=== PATIENT | male | born 1945 | race Caucasian/White ===

== ENCOUNTER → 2024-03-25 08:58 | Outpatient (REF) | payer MEDICARE, OTHER, SELFPAY | LOC: RCS 08:58 | PROVIDERS: ATTENDING PHYSICIAN Internal Medicine Cardiovascular Disease; FAMILY PHYSICIAN Family Medicine | DX: R06.09 Other forms of dyspnea (principal) | CPT/HCPCS: 93225; 93226 ==

== ENCOUNTER → 2024-03-29 12:22 | Outpatient (REF) | payer MEDICARE, OTHER, SELFPAY | LOC: HWRAD 12:22 | PROVIDERS: ATTENDING PHYSICIAN Nurse Practitioner Adult Health; FAMILY PHYSICIAN Family Medicine | DX: R91.1 Solitary pulmonary nodule (principal) | CPT/HCPCS: 71250 ==

== ENCOUNTER → 2024-04-07 11:02 | Outpatient (REF) | payer MEDICARE, OTHER, SELFPAY | LOC: HWRCS 11:02 | PROVIDERS: ATTENDING PHYSICIAN Internal Medicine Cardiovascular Disease; FAMILY PHYSICIAN Family Medicine | DX: R06.09 Other forms of dyspnea (principal); I45.10 Unspecified right bundle-branch block; I44.4 Left anterior fascicular block | CPT/HCPCS: 93306 ==

== ENCOUNTER → 2024-05-27 12:24 | Outpatient (REF) | payer MEDICARE, OTHER, SELFPAY | LOC: RAD 12:24 | PROVIDERS: ATTENDING PHYSICIAN Family Medicine | DX: M54.50 Low back pain, unspecified (principal) | CPT/HCPCS: 72110 ==

== ENCOUNTER 2024-06-17 14:34 | Emergency (ER) | payer MEDICARE, OTHER, SELFPAY ==
[2024-06-17 14:36] VITALS: BP 200/90
--- NOTE | 2024-06-17 14:36 | ED.GENMED ---
ED Provider Triage
<Gabby Olmos PA-C - Last Filed: 06/17/24 18:57>
-
Patient seen by provider in Triage?: Seen in Triage
Attestation: A medical screening examination has been initiated by a qualified medical provider. Based on the assessment performed at this time, it has been determined that an emergent medical condition may exist and the patient has been informed
that further medical evaluation and possible additional diagnostic testing may be needed.
HPI: 78yoM here with low back pain x several weeks after an injury. He was pulling a weed and fell backwards. Had x-rays last month which showed degenerative changes. PCP told him it was a bruise. Has an MRI scheduled for next month but can't wait
that long due to pain. No fevers, incontinence, saddle anesthesia.
GENERAL: Alert , in no apparent distress
EYE: No visual abnormalities.
NECK: Trachea midline
ENT: No visible abnormalities.
LUNGS: No acute respiratory distress
NEUROLOGICAL: Alert and oriented
SKIN: Skin intact. No visible changes.
MUSCULOSKELETAL: Moving extremities normally
PSYCH: Normal and appropriate interaction.
This is a medical evaluation conducted in person to initiate diagnostic evaluation and provide initial therapeutics. Please see further documentation by the treating clinician.
History of Present Illness
<Gabby Olmos PA-C - Last Filed: 06/17/24 18:57>
General
Chief Complaint: Back Pain
Time Seen by Provider: 06/17/24 16:14
<Allison Celis NP - Last Filed: 06/19/24 12:15>
General
Source: patient
Exam Limitations: none
Nursing documentation reviewed up to this point in time: agreed with
History of Present Illness
History of Present Illness:
Patient states he was pulling weeds approx 4 weeks ago, fell backwards injurying lower back. He was initially seen by PCP and treated for contusion to back. Pain persisted. He was then sent to spine at [facility]. Had outpatient xrays which showed
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 He was given rx for outpatient MRI. APpointment was scheduled for 07/23. He states his son is a surgeon in [place] and advised him to come to ED to get MRI today. Denies fever/chills, recent illness. No n/v/d. Denies any urinary
symptoms. Pain does not radiate. No weakness in extremities. No saddle paresthesia. AMbulating in [place] without assistance, without difficulty.
Past History
<Gabby Olmos PA-C - Last Filed: 06/17/24 18:57>
Past History
ED Past Medical History: HTN and Hypercholesterolemia
Social History
Tobacco: Smoker
Alcohol: None
Drug: None
Personal:
Living: with family
<Allison Celis NP - Last Filed: 06/19/24 12:15>
Past History
ED Past Medical History: COPD
Review of Systems
<Allison Celis NP - Last Filed: 06/19/24 12:15>
Review of Systems
Allergies reviewed?: Yes
All Other Systems: ROS reviewed and negative except as documented in HPI and ROS
Constitutional: Reports no symptoms
EENT: Reports no symptoms
Respiratory: Reports no symptoms
Cardiac: Reports no symptoms
ABD/GI: Reports no symptoms
Musculoskeletal: Reports back pain (bilateral lower back pain)
Skin: Reports no symptoms
Neurological: Reports no symptoms
Psychiatric: Reports no symptoms
Phy Exam
<Allison Celis NP - Last Filed: 06/19/24 12:15>
General Physical Exam
General Presentation: well appearing and no apparent distress
General age: appears stated age
General Skin: warm and dry
General Habitus: normal
General Mental: alert
Gastrointestinal Exam
Gastrointestinal Exam: non tender and soft
Reflexes
Reflexes: +3: Left patellar, +3: Right patellar, +3: Left achilles and +3: Right achilles
Musculoskeletal Exam
Musculoskeletal Exam: full ROM, neuro vasc intact and other (Equal strength and sensation bilaterally)
Skin Exam
Skin Exam: normal color, warm/dry and no rash
Psychiatric Exam
Psychiatric Exam: normal mood/affect
Course
<Gabby Olmos PA-C - Last Filed: 06/17/24 18:57>
Vital Signs
Initial and Last Documented VS:
Initial Vital Signs
Temp Pulse Resp BP Pulse Ox
98.1 F 73 18 200/90 96
06/17/24 14:36 06/17/24 14:36 06/17/24 14:36 06/17/24 14:36 06/17/24 14:36
Last Documented Vital Signs
Temp Pulse Resp BP Pulse Ox
98.1 F 85 18 198/89 98
06/17/24 14:36 06/17/24 16:51 06/17/24 16:51 06/17/24 16:51 06/17/24 16:51
<Allison Celis NP - Last Filed: 06/19/24 12:15>
Vital Signs
Initial and Last Documented VS:
Initial Vital Signs
Temp Pulse Resp BP Pulse Ox
98.1 F 73 18 200/90 96
06/17/24 14:36 06/17/24 14:36 06/17/24 14:36 06/17/24 14:36 06/17/24 14:36
Last Documented Vital Signs
Temp Pulse Resp BP Pulse Ox
98.1 F 85 18 198/89 98
06/17/24 14:36 06/17/24 16:51 06/17/24 16:51 06/17/24 16:51 06/17/24 16:51
<Allison Celis NP - Last Filed: 06/19/24 12:15>
MDM/Problems Addressed
Differential Diagnosis Includes:
Patient to ED with request for MRI for low back pain. Fall approx 4 weeks ago with continued pain to low back. Had outpatient xray, neg for fracture. Has been evaluated by PCP and ortho. Ortho scheduled MRI for Jul 23 however patient is concerned
that this is too far out. States his son is a surgeon in [place] and advised him to come to ED for expedited MRI. Exam completed, no neurological deficits noted. He has full ROM to all extremities, equal strength and sensation bilaterally. No saddle
paresthesia. No bowel or bladder symptoms. No findings on exam to warrant emergent MRI Would recommend prn pain medication for compfort measures and he is agreeable to this. He is discharged home and will follow up with ortho, continue with plan
for MRI.
<Allison Celis NP - Last Filed: 06/19/24 12:15>
*Critical Care Note
Total Time (30-74mins, 75-104mins- exclusive of procedures): Not Applicable
ED Attending Note
<Gabby Olmos PA-C - Last Filed: 06/17/24 18:57>
-
Portions of this chart may have been created with voice recognition software.� Occasional wrong word or��sound alike� substitutions may have occurred due to the inherent limitations of voice recognition software.
Discharge Plan
Departure
Patient Disposition: Home (Routine Discharge)
Date of Disposition: 06/17/24
Time of Disposition: 16:32
Patient with high blood pressure during this ER visit?: No
Condition: Good
Covid-19: Not Applicable
Discharge Problem:
Back pain due to injury
Instructions: Low Back Pain (DC)
Prescriptions:
New
oxycodone 5 mg capsule
5 mg PO Q6H PRN (Reason: Pain) Qty: 12 0RF
No Action
atorvastatin 20 mg tablet
20 mg PO QPM
tamsulosin 0.4 mg capsule
0.4 mg PO DAILY
omeprazole 20 mg Capsule,Delayed Release(Dr/Ec)
20 mg PO DAILY
montelukast 10 mg tablet
10 mg PO HS
amlodipine-valsartan 10-320 mg tablet
1 tab PO DAILY
Asmanex HFA 100 mcg/actuation HFA aerosol inhaler
2 puff INHALATION R DAILY
amoxicillin-pot clavulanate 875-125 mg tablet
1 tab PO Q12H Qty: 20 0RF
mupirocin calcium 2 % cream
1 applic topical BID Qty: 30 0RF
Referrals:
Gonzalez Roque, DO [Family Provider] - Tomorrow
Interventions
Interventions:
*Risk Screen - Suicide Last Done: 06/17/24 14:36
*General Assessment Last Done: 06/17/24 14:36
*Neglect/Abuse Screening Last Done: 06/17/24 14:36
*ED COVID-19 Vaccine History Last Done: 06/17/24 14:41
*Nursing Disposition Last Done: 06/17/24 16:51
ED-Musculoskeletal Assessment Last Done: 06/17/24 15:23
Discharge Date and Time
Discharge Date/Time: 06/17/24 16:52
Print Language: FRENCH
[2024-06-17 16:51] VITALS: BP 198/89
== END 2024-06-17 16:52 | disposition home or self-care (01) ==
LOC: EMR 14:34
PROVIDERS: EMERGENCY PHYSICIAN Emergency Medicine; FAMILY PHYSICIAN Family Medicine
DX: M54.50 Low back pain, unspecified (principal); W19.XXXA Unspecified fall, initial encounter; F17.200 Nicotine dependence, unspecified, uncomplicated
CPT/HCPCS: 99282

== ENCOUNTER → 2025-07-14 11:15 | Outpatient (REF) | payer MEDICARE, OTHER, SELFPAY | LOC: HWRAD 11:15 | PROVIDERS: ATTENDING PHYSICIAN Family Medicine | DX: M25.562 Pain in left knee (principal) | CPT/HCPCS: 73564 ==